=== PATIENT | male | born 1990 | race Caucasian/White ===

== ENCOUNTER 2018-03-17 12:27 | Inpatient (IN) | payer BC ==
[~2018-03-17] VITALS: Ht 180.3 cm; Wt 79.1 kg
[2018-03-17 13:26] LABS: HEMATOCRIT 44.7 % (38.0-50.0); HEMOGLOBIN 15.4 G/DL (12.5-16.6); MCH 30.9 PG (29.0-34.0); MCHC 34.5 G/DL (30.0-36.0); MCV 89.6 FL (86-99); PLATELET COUNT 281 K/uL (156-360); RBC DIS.WIDTH-CV 12.2 % (11.8-14.6); RBC DIS.WIDTH-SD 39.9 % (39-53); RED BLOOD COUNT 4.99 M/uL (4.00-5.50); WHITE BLOOD COUNT 9.4 K/uL (4.1-10.2)
[2018-03-17 13:35] LABS: CHLORIDE 106 mEq/L (99-109); SODIUM 143 mEq/L (136-147)
[2018-03-17 13:37] LABS: GLUCOSE 95 mg/dL (70-99)
[2018-03-17 13:38] LABS: AMPHETAMINE NEGATIVE (500 ng/mL); BARBITURATES NEGATIVE (200 ng/mL); BENZODIAZEPINES NEGATIVE (150 ng/mL); COCAINE NEGATIVE (150 ng/mL); METHADONE NEGATIVE (200 ng/mL); METHAMPHETAMINE NEGATIVE (500 ng/mL); OPIATES (MORPHINE) NEGATIVE (100 ng/mL); OXYCODONE NEGATIVE (100 ng/mL); PHENCYCLIDINE NEGATIVE (25 ng/mL); THC CANNABINOIDS NEGATIVE (50 ng/mL); TRICYCLIC ANTIDEPRESSANTS NEGATIVE (300 ng/mL)
[2018-03-17 13:39] LABS: BUPRENORPHINE NEGATIVE (10 ng/mL); PROPOXYPHENE NEGATIVE (300 ng/mL)
[2018-03-17 13:40] LABS: SERUM ETHYL ALCOHOL 201 mg/dL
[2018-03-17 13:41] LABS: CREATININE 0.8 mg/dL (0.6-1.3); GFR ESTIMATE (CALCULATED) > 59 mL/min/ (58.99-99999)
[2018-03-17 13:42] LABS: UREA NITROGEN (BUN) 11 mg/dL (9-23)
[2018-03-18 07:37] VITALS: BP 132/73
[2018-03-18 14:52] VITALS: BP 136/69
[2018-03-19 07:29] VITALS: BP 100/50
[2018-03-19 15:05] VITALS: BP 130/78
[2018-03-20 07:47] VITALS: BP 119/59
[2018-03-20 16:15] VITALS: BP 140/74
[2018-03-21 07:32] VITALS: BP 121/56
[2018-03-21] MEDS ORDERED: BUPROPION HCL100 M1 PO (08:41)
[2018-03-21] MEDS ORDERED: QUETIAPINE FUMA50 MG PO (08:41)
[2018-03-21] MEDS ORDERED: NALTREXONE HCL50 MG PO (08:47)
== END 2018-03-21 10:35 | disposition home or self-care (01) | DRG 885 ==
LOC: EME 12:27 → 1WEST 17:59 → EDOF 17:59 → ENRESERV 19:03 → 1WEST 19:13
DX: F33.1 Major depressive disorder, recurrent, moderate (principal); F43.20 Adjustment disorder, unspecified; R45.851 Suicidal ideations; F17.200 Nicotine dependence, unspecified, uncomplicated; F10.10 Alcohol abuse, uncomplicated; G47.00 Insomnia, unspecified
CPT/HCPCS: 80048; 85027; 90839; 97150 GO; 97165 GO; 99281; 99285; G0480